=== PATIENT | male | born 1990 | race Caucasian/White ===

== ENCOUNTER 2019-12-18 19:08 | Emergency (ER) | payer OTHER ==
[~2019-12-18] VITALS: Ht 193 cm; Wt 97.5 kg
== END 2019-12-18 21:38 | disposition home or self-care (01) ==
LOC: ED 19:08
DX: S61.215A Laceration without foreign body of left ring finger without damage to nail, initial encounter (principal); W26.0XXA Contact with knife, initial encounter; Z88.0 Allergy status to penicillin
CPT/HCPCS: 12001; 90471; 90715; 99282-25